=== PATIENT | female | born 1970 | race Caucasian/White ===

== ENCOUNTER → 2016-08-12 | Outpatient (CLI) | payer OTHER ==
--- NOTE | 2016-08-12 10:31 | XR ---
EXAMINATION TYPE: XR lumbosacral spine min 4V DATE OF EXAM: 08/12/2016 10:27 AM COMPARISON: NONE HISTORY: Pain radiating down back TECHNIQUE: 5 view lumbar spine FINDINGS: There 5 lumbar-type vertebral bodies. Pedicles are intact. Mild spondylosis is present. Sebastian e posterior disc space calcification may be present L2-3 L3-4. Disc heights appear preserved. Vertebr al body heights are preserved IMPRESSION: 1. Mild degenerative changes.
== END | disposition home or self-care (01) ==
LOC: RADXRMAIN 09:58
PROVIDERS: ATTEND Family Medicine
DX: M54.5 Low back pain (principal)
CPT/HCPCS: 72110

== ENCOUNTER → 2017-05-13 | Outpatient (CLI) | payer OTHER ==
--- NOTE | 2017-06-28 13:04 | HM ---
HOLTER MONITOR REPORT DATE OF SERVICE: 05/13/2017. INDICATION OF THE STUDY: Palpitations. CLINICAL INFORMATION: The patient was monitored for 24 hours. The baseline rhythm is a sinus mechanism with a minimum heart rate of 59 beats per minute, max heart rate of 131 beats per minute, average heart rate of 97 beats per minute. There were rare supraventricular ectopic events seen in singles. No evidence of any SVT seen. No evidence of any ventricular ectopic events seen. The patient reported no symptoms. CONCLUSION: 1. Sinus rhythm as a baseline mechanism. 2. Rare ventricular ectopic events. 3. There is no evidence of any ventricular ectopic events. 4. There is no evidence of tachy or bradyarrhythmia. 5. There is no evidence of sinus pause or sinus arrest. MMODL / IJN: [id number] /
== END | disposition home or self-care (01) ==
LOC: RADECHMAIN 12:26
PROVIDERS: ATTEND Family Medicine
DX: I49.3 Ventricular premature depolarization (principal)
CPT/HCPCS: 93225; 93226

== ENCOUNTER → 2017-12-22 | Outpatient (CLI) | payer OTHER ==
--- NOTE | 2017-12-22 17:05 | XR ---
EXAMINATION TYPE: XR chest 2V DATE OF EXAM: 12/22/2017 COMPARISON: 03/21/2014 HISTORY: 47-year-old female with cough TECHNIQUE: Frontal and lateral views FINDINGS: The cardiomediastinal silhouette, aorta, and pulmonary vasculature are within normal limits. Lungs an d pleural spaces are clear. IMPRESSION: No acute cardiopulmonary process.
== END | disposition home or self-care (01) ==
LOC: RADXRMAIN 15:58
PROVIDERS: ATTEND Family Medicine
DX: R05 Cough (principal)
CPT/HCPCS: 71046

== ENCOUNTER → 2018-01-25 | Outpatient (CLI) | payer OTHER ==
--- NOTE | 2018-01-26 14:55 | MM ---
Reason for exam: screening (asymptomatic). Last mammogram was performed 3 years and 10 months ago. History: Patient is postmenopausal and is nulliparous. Took hormonal contraceptives for 3 months beginning at age 21. Physical Findings: A clinical breast exam by your physician is recommended on an annual basis and results should be correlated with mammographic findings. MG Screening Mammo w CAD Bilateral CC and MLO view(s) were taken. Prior study comparison: March 26, 2014, bilateral MG screening mammo w CAD. January 13, 2009, bilateral digital screening mammogram. The breast tissue is almost entirely fat. No significant changes when compared with prior studies. ASSESSMENT: Benign, BI-RAD 2 RECOMMENDATION: Routine screening mammogram of both breasts in 1 year.
== END | disposition home or self-care (01) ==
LOC: RADMAMWWP 16:09
PROVIDERS: ATTEND Family Medicine
DX: Z12.31 Encounter for screening mammogram for malignant neoplasm of breast (principal)
CPT/HCPCS: 77067

== ENCOUNTER → 2018-08-30 | Outpatient (CLI) | payer OTHER ==
--- NOTE | 2018-08-30 13:54 | ECHOS ---
STRESS ECHOCARDIOGRAM INDICATIONS: Syncope. BASELINE HEART RATE: 79 BASELINE BLOOD PRESSURE: 133/59 MAXIMUM HEART RATE: 154 MAXIMUM BLOOD PRESSURE: 181/56 85% MPHR: 149 100% MPHR: 175 METS: 6.6 MAXIMUM STAGE REACHED: 2 TOTAL EXERCISE TIME: 4:45 CLINICAL INFORMATION: Patient was exercised for a total period of 5 minutes, peak heart rate of 154 was achieved. Maximum blood pressure of 181/56 mmHg was noted. Resting EKG shows normal sinus rhythm with normal UT interval and QRS duration and normal ST-T waves. No ST- segment depression suggestive of ischemia is noted. The baseline echocardiographic images reveal normal left ventricular chamber size with normal left ventricular systolic function in the immediate post exercise. Normal increase in the wall thickness and contractility is noted. FINAL IMPRESSION: 1. This stress echocardiographic study is negative for stress-induced ischemia. 2. EKG portion of the stress test shows equivocal upsloping ST-segment changes which are not definitely diagnostic of ischemia. 3. Patient's exercise tolerance is below average. MMODL / IJN: [id number] /
== END ==
LOC: RADNMMAIN 09:01
PROVIDERS: ATTEND Family Medicine
DX: R55 Syncope and collapse (principal); Z88.0 Allergy status to penicillin; Z88.1 Allergy status to other antibiotic agents
CPT/HCPCS: 93351

== ENCOUNTER → 2020-11-20 | Outpatient (CLI) | payer BC ==
--- NOTE | 2020-11-21 11:49 | MM ---
Reason for exam: screening (asymptomatic). Last mammogram was performed 2 years and 10 months ago. History: Patient is postmenopausal and is nulliparous. Took hormonal contraceptives for 3 months beginning at age 21. Physical Findings: A clinical breast exam by your physician is recommended on an annual basis and results should be correlated with mammographic findings. MG Screening Mammo w CAD Bilateral CC and MLO view(s) were taken. Prior study comparison: January 25, 2018, bilateral MG screening mammo w CAD. March 26, 2014, bilateral MG screening mammo w CAD. There are scattered fibroglandular densities. No significant changes when compared with prior studies. ASSESSMENT: Benign, BI-RAD 2 RECOMMENDATION: Routine screening mammogram of both breasts in 1 year.
== END | disposition home or self-care (01) ==
LOC: RADMAMWWP 09:18
PROVIDERS: ATTEND Family Medicine
DX: Z12.31 Encounter for screening mammogram for malignant neoplasm of breast (principal); Z78.0 Asymptomatic menopausal state
CPT/HCPCS: 77067

== ENCOUNTER → 2022-02-10 | Outpatient (CLI) | payer BC ==
--- NOTE | 2022-02-12 11:23 | MM ---
Reason for Exam: Screening (asymptomatic). Last mammogram was performed 1 year(s) and 3 month(s) ago. Patient History: Menarche at age 14. Patient has no children. Hysterectomy at age 40. Postmenopausal. Hormonal Contraceptives for 3 months starting at age 21. Risk Values: [place]ata 5 year model risk: 1.0%. NCI Lifetime model risk: 10.0%. Prior Study Comparison: 03/26/2014 Bilateral Screening Mammogram, [facility]. 01/25/2018 Bilateral Screening Mammogram, [facility]. 11/20/2020 Bilateral Screening Mammogram, [facility]. Tissue Density: There are scattered fibroglandular densities. Findings: Analyzed By CAD. No discrete abnormality. Overall Assessment: Negative, BI-RAD 1 Management: Screening Mammogram of both breasts in 1 year. A clinical breast exam by your physician is recommended on an annual basis and results should be correlated with mammographic findings. Electronically signed and approved by: Pily Franks M.D. Radiologist
== END | disposition home or self-care (01) ==
LOC: RADMAMWWP 16:16
PROVIDERS: ATTEND Family Medicine
DX: Z12.31 Encounter for screening mammogram for malignant neoplasm of breast (principal); Z78.0 Asymptomatic menopausal state
CPT/HCPCS: 77067

== ENCOUNTER 2022-04-02 16:14 | Emergency (ER) | payer OTHER ==
--- NOTE | 2022-04-02 17:46 | XR ---
EXAMINATION TYPE: XR Hip Complete RT DATE OF EXAM: 04/02/2022 COMPARISON: NONE HISTORY: Fall. Pain TECHNIQUE: 2 view FINDINGS: Proximal femur is intact. Acetabulum is intact. I see no fracture nor dislocation. IMPRESSION: No acute abnormality of the right hip.
[2022-04-02] MEDS ORDERED: IBUPROFEN 800 MG TAB PO STA (19:41)
[2022-04-02] MEDS ORDERED: IBUPROFEN 600 MG STARTER PACK 4 TAB BTL PO STA (19:41)
--- NOTE | 2022-04-02 19:43 | ED ---
General Adult HPI - General Chief complaint: Fall Stated complaint: [facility] Fall/rt hip Time Seen by Provider: 04/02/22 19:20 Source: patient Mode of arrival: wheelchair Limitations: no limitations - History of Present Illness Initial comments: Dictation was produced using [employer] dictation software. please excuse any grammatical, word or spelling errors. Chief Complaint: 51-year-old. Presents with right-sided hip pain History of Present Illness: 51-year-old female she presents to emergency department for right-sided hip pain. They were moving some furniture when all of a sudden she lost her balance and fell backwards. States that she landed backwards. After the fall she complains of right hip pain. Patient is understandable with significant pain. Patient hasn't had trauma. No other complaints. The ROS documented in this emergency department record has been reviewed and confirmed by me. Those systems with pertinent positive or negative responses have been documented in the HPI. All other systems are other negative and/or noncontributory. PHYSICAL EXAM: General Impression: Alert and oriented x3, not in acute distress HEENT: Normocephalic atraumatic, extra-ocular movements intact, pupils equal and reactive to light bilaterally, mucous membranes moist. Cardiovascular: Heart regular rate and rhythm Chest: Able to complete full sentences, no retractions, no tachypnea Musculoskeletal: Pulses present and equal in all extremities, no peripheral edema Motor: no focal deficits noted Neurological: CN II-XII grossly intact, no focal motor or sensory deficits noted Skin: Intact with no visualized rashes Psych: Normal affect and mood ED course: 51-year-old female presents to the emergency department with right hip pain after fall. Vital signs upon arrival are within acceptable limits. X- rays of the hip shows no acute injuries. Patient given Motrin and Motrin starter pack. Told to rest and follow-up with primary care doctor. - Related Data Allergies Allergy/AdvReac Type Severity Reaction Status Date / Time ciprofloxacin [From Cipro] Allergy Unknown Verified 04/02/22 16:57 Penicillins Allergy Unknown Verified 04/02/22 16:57 Review of Systems ROS Statement: Those systems with pertinent positive or pertinent negative responses have been documented in the HPI. ROS Other: All systems not noted in ROS Statement are negative. 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 History of Any Multi-Drug Resistant Organisms: None Reported Past Surgical History: Hysterectomy, Orthopedic Surgery Additional Past Surgical History / Comment(s): eye surgery Past Psychological History: No Psychological Hx Reported Smoking Status: Never smoker Past Alcohol Use History: None Reported Past Drug Use History: None Reported General Exam Limitations: no limitations Course Vital Signs 04/02/22 16:53 Temperature 98.7 F Pulse Rate 86 Respiratory 16 Rate Blood Pressure 146/84 O2 Sat by Pulse 99 Oximetry Disposition Clinical Impression: Contusion, hip Disposition: HOME SELF-CARE Condition: Good Instructions (If sedation given, give patient instructions): Hip Contusion (ED) Is patient prescribed a controlled substance at d/c from ED?: No Referrals: Krystle Elmore MD [Primary Care Provider] - 1-2 days Time of Disposition: 19:43
[2022-04-02 20:24] VITALS: BP 155/78; PULSE 71; RESP 17; TEMP 97.8
== END 2022-04-02 19:55 | disposition home or self-care (01) ==
LOC: EC 16:14 → SUPCPDRO 16:14 → EC 19:55
DX: S70.01XA Contusion of right hip, initial encounter (principal); E11.9 Type 2 diabetes mellitus without complications; I10 Essential (primary) hypertension; Z88.0 Allergy status to penicillin; Z88.1 Allergy status to other antibiotic agents; W01.0XXA Fall on same level from slipping, tripping and stumbling without subsequent striking against object, initial encounter
CPT/HCPCS: 73502; 99284

== ENCOUNTER → 2022-04-06 | Outpatient (CLI) | payer OTHER ==
--- NOTE | 2022-04-06 16:36 | XR ---
EXAMINATION TYPE: XR pelvis AP view DATE OF EXAM: 04/06/2022 4:27 PM INDICATION: Patient age:Female; 51 years old; Reason for study: S30.0XXA; COMPARISON: Same day radiographs. TECHNIQUE: The pelvis was examined in a single projection. FINDINGS: There is no evidence of fracture or dislocation. There is no soft tissue abnormality. No a bnormal calcifications are present. Multilevel degenerative changes of the lower spine. Pelvic phlebo lith present. IMPRESSION: No acute osseous pathology.
--- NOTE | 2022-04-06 16:36 | XR ---
EXAMINATION TYPE: XR lumbar spine 2 or 3V DATE OF EXAM: 04/06/2022 CLINICAL HISTORY: Pain after injury. TECHNIQUE: Frontal and lateral images of the lumbar spine are obtained. COMPARISON: Prior lumbar spine x-ray 2016 FINDINGS: There are 5 lumbar type vertebral bodies redemonstrated. The lumbar spine shows stable an d satisfactory alignment without evidence of acute fracture or dislocation. Vertebral body heights an d disk space heights remain within normal limits. Moderate to severe multilevel anterior and lateral spurring is more prominent versus prior. The overlying soft tissue appears unremarkable. IMPRESSION: No acute fracture or dislocation is seen in the lumbar spine.
--- NOTE | 2022-04-06 16:36 | XR ---
EXAMINATION TYPE: XR sacrum coccyx DATE OF EXAM: 04/06/2022 4:28 PM INDICATION: Patient age:Female; 51 years old; Reason for study: S30.0XXA; COMPARISON: None TECHNIQUE: The sacrum and coccyx was examined in frontal and lateral projections. FINDINGS: There is no evidence of fracture or dislocation. There is no soft tissue abnormality. No a bnormal calcifications are present. Multilevel degenerative changes of the lower spine. IMPRESSION: No acute osseous pathology.
== END | disposition home or self-care (01) ==
LOC: RADXRMAIN 16:02
PROVIDERS: ATTEND Emergency Medicine
DX: S30.0XXA Contusion of lower back and pelvis, initial encounter (principal)
CPT/HCPCS: 72100; 72170; 72220

== ENCOUNTER → 2022-04-15 | Outpatient (CLI) | payer OTHER ==
--- NOTE | 2022-04-15 09:18 | CT ---
EXAMINATION TYPE: CT lumbar spine wo con CT DLP: 1078 mGycm, Automated exposure control for dose reduction was used. DATE OF EXAM: 04/15/2022 9:04 AM COMPARISON: Lumbar spine radiograph 04/06/2022. CLINICAL INDICATION:Female, 51 years old with history of S30.0XXD CONTUSION OF LOWER BACK AND PELVIS; PHH, Low back pain and bilateral leg pain after fall on 04/02/22. TECHNIQUE: Multiple axial images were obtained from the midportion of T11 through the sacroiliac greer nts. Soft tissue and bone windows in coronal and sagittal planes were obtained and reviewed. FINDINGS: Alignment: There are 5 lumbar type vertebral bodies with no spondylolisthesis. Mild levo curvature of the lumbar spine with apex at L1-L2. Bone: No evidence of fracture is identified. Multilevel degenerative changes of the spine with anter ior osteophytosis. Multilevel posterior disc osteophyte complexes. Calcification of the posterior anita gitudinal ligament at L1. Discs: T12-L1: Posterior disc osteophyte complex with mild effacement of the anterior thecal sac. Mild bilat eral neural foraminal narrowing. L1-L2: Posterior disc osteophyte complex with mild effacement of the anterior thecal sac. Neural fora men are patent bilaterally. L2-L3: Posterior disc osteophyte complex with mild effacement of the anterior thecal sac. Moderate ri ght neural foraminal stenosis. The left neural foramen is patent. L3-L4: Posterior disc osteophyte complex with mild spinal canal stenosis. The neural foramen are joiner nt bilaterally. L4-L5: Broad-based disc bulge without significant spinal canal stenosis. The neural foramina patent bilaterally. L5-S1: Broad-based disc bulge without significant spinal canal stenosis. The neural foramina are joiner nt bilaterally. Other: None IMPRESSION: 1. No evidence of fracture of the lumbar spine. 2. Mild multilevel degenerative disc disease. Multilevel prominent posterior disc defect complexes wi th mild spinal canal stenosis.
== END | disposition home or self-care (01) ==
LOC: RADCTMAIN 08:46
PROVIDERS: ATTEND Emergency Medicine
DX: M51.36 Other intervertebral disc degeneration, lumbar region (principal); M51.27 Other intervertebral disc displacement, lumbosacral region; M48.061 Spinal stenosis, lumbar region without neurogenic claudication; M99.73 Connective tissue and disc stenosis of intervertebral foramina of lumbar region
CPT/HCPCS: 72131

== ENCOUNTER → 2022-04-20 | Outpatient (CLI) | payer OTHER ==
--- NOTE | 2022-04-20 09:43 | MR ---
EXAMINATION TYPE: MR lumbar spine wo con DATE OF EXAM: 04/20/2022 COMPARISON: CT lumbar spine April 15, 2022 HISTORY: Low back pain post fall injury in the past. TECHNIQUE: Multiplanar, multisequence imaging of the lumbar spine is performed without IV contrast. FINDINGS: Sagittal images of the lumbar spine show vertebral body heights and alignment to appear sat isfactory. Coronal images show slight posterior convex scoliotic curvature centered at the lumbosacra l junction. Disc desiccation L3-L4 through the L5-S1 levels. Mild disc space narrowing L3-L4 level is seen. The conus medullaris is normal in position and signal ending mid L1 level. The bone marrow s ignal intensity is within normal limits. Mild multilevel anterior spurring is redemonstrated. Axial images at T12-L1 levels show mild to moderate broad disc bulge along with mild to moderate face t arthropathy and ligamentum flavum hypertrophy. There is some effacement of the posterolateral theca l sac and minimal effacement of the anterior thecal sac. Patent bilateral neural foramina. Axial images at L1-L2 level shows central disc protrusion mildly effacing the anterior thecal sac varsha ng with mild facet arthropathy bilaterally. Patent bilateral neural foramina. Axial images at L2-L3 level appear within normal limits. Axial images at L3-L4 level show mild broad disc bulge with central disc protrusion effacing anterior thecal sac. There is mild facet arthropathy bilaterally. There is mild right-sided neural foraminal narrowing. Axial images at L4-L5 level show mild facet arthropathy bilaterally. There is mild broad disc bulge c ausing mild bilateral anterior inferior neural foraminal narrowing. Spinal canal is preserved. Axial images at L5-S1 level show mild/moderate facet arthropathy bilaterally. There is mild broad dis c bulge with mild bilateral anterior inferior neural foraminal narrowing. Spinal canal is preserved. Paraspinal muscle bulk is maintained. IMPRESSION: Multilevel degenerative changes in the lumbar spine as detailed above.
== END | disposition home or self-care (01) ==
LOC: RADMRIMAIN 06:36
PROVIDERS: ATTEND Emergency Medicine
DX: M47.816 Spondylosis without myelopathy or radiculopathy, lumbar region (principal)
CPT/HCPCS: 72148

== ENCOUNTER → 2023-02-02 | Day surgery (SDC) | payer OTHER ==
[2023-01-28 15:34] VITALS: BMI 45.6
[~2023-02-02] MED LIST: LACTATED RINGERS 1,000 ML IV SCH; LIDOCAINE 1% (10MG/ML) FOR IV START INTRADERMA PRN; MIDAZOLAM 2 MG/2 ML VIAL ONE; PROPOFOL 10 MG/ML 20 ML VIAL IV ONE; fentaNYL (PF) 50 MCG/ML 2 ML AMP ONE
[2023-02-02 07:19] VITALS: TEMP 97.4
[2023-02-02 07:21] LABS: Glucose,Whole Blood 197 mg/dL (70-110)
--- NOTE | 2023-02-02 07:54 | P.GSHP ---
History of Present Illness H&P Date: 02/02/23 CHIEF COMPLAINT: Colon screen HISTORY OF PRESENT ILLNESS: The patient is a 52-year-old female who presents for colon screen. Lower endoscopy was offered for further evaluation and management. PAST MEDICAL HISTORY: Please see list. PAST SURGICAL HISTORY: Please see list. MEDICATIONS: Please see list. ALLERGIES: Please see list. SOCIAL HISTORY: No illicit drug use FAMILY HISTORY: No reports of Crohn disease or ulcerative colitis. REVIEW OF ORGAN SYSTEMS: CONSTITUTIONAL: No reports of fevers or chills. PHYSICAL EXAM: VITAL SIGNS: Stable GENERAL: Well-developed pleasant in no acute distress. HEENT: No scleral icterus. Extraocular movements grossly intact. Moist buccal mucosa. NECK: Supple without lymphadenopathy. CHEST: Unlabored respirations. Equal bilateral excursions. CARDIOVASCULAR: Regular rate and rhythm. Distal 2+ pulses. ABDOMEN: Soft, nontender, nondistended. MUSCULOSKELETAL: No clubbing, cyanosis, or edema. ASSESSMENT: 1. Colon screen. PLAN: 1. Recommend proceeding with a lower endoscopy Past Medical History Past Medical History: Diabetes Mellitus, Hypertension, Skin Disorder, Sleep Apnea/CPAP/BIPAP Additional Past Medical History / Comment(s): Varicose veins legs, left 2nd toe- has a scratch, bleeding in left eye-had recent MRI, supposed to use CPAP, takes Losartan to protect kidneys, not for high BP. History of Any Multi-Drug Resistant Organisms: None Reported Past Surgical History: Hysterectomy, Orthopedic Surgery Additional Past Surgical History / Comment(s): Cataracts removed, varicose veins removed right leg, ORIF & bone spur & achilles tendon surgery left ankle. Past Anesthesia/Blood Transfusion Reactions: No Reported Reaction Past Psychological History: No Psychological Hx Reported Smoking Status: Never smoker Past Alcohol Use History: None Reported Past Drug Use History: None Reported Medications and Allergies Home Medications Medication Instructions Recorded Confirmed Type Acetaminophen [Tylenol Arthritis] 1,300 mg PO HS 01/05/23 02/02/23 History Losartan Potassium 50 mg PO HS 01/05/23 02/02/23 History Tolterodine ER [Detrol LA] 2 mg PO HS 01/05/23 02/02/23 History metFORMIN HCL ER [Glucophage XR] 2,000 mg PO HS 01/05/23 02/02/23 History sitaGLIPtin [Januvia] 100 mg PO HS 01/05/23 02/02/23 History Allergies Allergy/AdvReac Type Severity Reaction Status Date / Time ciprofloxacin [From Cipro] Allergy Unknown Verified 01/28/23 15:35 Penicillins Allergy Unknown Verified 01/28/23 15:35 Childhood Surgical - Exam Vital Signs Temp Pulse Resp BP Pulse Ox 97.4 F L 80 18 154/70 99 02/02/23 07:17 02/02/23 07:17 02/02/23 07:17 02/02/23 07:17 02/02/23 07:17 Results - Labs Abnormal Lab Results - Last 24 Hours (Table) 02/02/23 Range/Units 07:16 POC Glucose (mg/dL) 197 H (70-110) mg/dL
--- NOTE | 2023-02-02 08:22 | P.PCN ---
Date of Procedure: 02/02/23 Description of Procedure: PREOPERATIVE DIAGNOSIS: Colonoscopy screening. POSTOPERATIVE DIAGNOSIS: Colonoscopy screening. OPERATION: Colonoscopy to the cecum, ileocecal valve and appendiceal orifice. SURGEON: Gilda Littlejohn MD. ANESTHESIA: MAC. INDICATIONS: The patient is a 52-year-old female who presents for her first colonoscopy screening. Benefits and risks were described and informed consent was obtained. DESCRIPTION OF PROCEDURE: The patient had undergone Sutab prep. The patient had been brought into the operating room and laid in the left lateral decubitus position. After adequate intravenous sedation, the rectum was examined with 2% lidocaine jelly. External hemorrhoids were encountered. The rectal tone was within normal limits. No lesions were palpated in the rectal vault. An Olympus colonoscope was advanced until the cecum, ileocecal valve and appendiceal orifice were clearly viewed. The prep was excellent. No scattered diverticulosis was encountered. No colonic polyps were found. No evidence of focal colitis was found. Retroflexion of the scope demonstrated grade 2 internal hemorrhoids without active bleeding or inflammation. The colon was desufflated. The patient had tolerated the procedure well. Withdrawal time was over 6 minutes. FINDINGS: Aronchick preparation quality scale 1 (1-5) Internal hemorrhoids, grade 2 External prolapsed hemorrhoids, grade 2 No arteriovenous malformations. No adenomatous polyps. No focal colitis. RECOMMENDATIONS: Lower endoscopy 10 years, 2032 Plan - Discharge Summary Discharge Rx Participant: No New Discharge Prescriptions: Continue sitaGLIPtin [Januvia] 100 mg PO HS metFORMIN HCL ER [Glucophage XR] 2,000 mg PO HS Tolterodine ER [Detrol LA] 2 mg PO HS Acetaminophen [Tylenol Arthritis] 1,300 mg PO HS Losartan Potassium 50 mg PO HS Discharge Medication List Acetaminophen [Tylenol Arthritis] 1,300 mg PO HS 01/05/23 [History] Losartan Potassium 50 mg PO HS 01/05/23 [History] Tolterodine ER [Detrol LA] 2 mg PO HS 01/05/23 [History] metFORMIN HCL ER [Glucophage XR] 2,000 mg PO HS 01/05/23 [History] sitaGLIPtin [Januvia] 100 mg PO HS 01/05/23 [History] Follow up Appointment(s)/Referral(s): Gilda Littlejohn MD [STAFF PHYSICIAN] - As Needed Patient Instructions/Handouts: Moderate Sedation (ED) Activity/Diet/Wound Care/Special Instructions: Repeat colonoscopy 10 years, 2032 Discharge Disposition: HOME SELF-CARE
[2023-02-02 08:30] VITALS: BP 133/85; PULSE 64; RESP 14
[2023-02-02 10:07] LABS: Glucose,Whole Blood 176 mg/dL (70-110)
== END | disposition home or self-care (01) ==
LOC: ORWHC2ENDO 06:41
PROVIDERS: ATTEND Surgery Plastic and Reconstructive Surgery
DX: Z12.11 Encounter for screening for malignant neoplasm of colon (principal); K64.1 Second degree hemorrhoids; K64.8 Other hemorrhoids; E11.9 Type 2 diabetes mellitus without complications; I10 Essential (primary) hypertension; G47.33 Obstructive sleep apnea (adult) (pediatric); Z98.890 Other specified postprocedural states; Z90.710 Acquired absence of both cervix and uterus; Z79.84 Long term (current) use of oral hypoglycemic drugs; Z79.899 Other long term (current) drug therapy; Z88.1 Allergy status to other antibiotic agents; Z88.0 Allergy status to penicillin
CPT/HCPCS: J2250; J3010; J2704; G0121